=== PATIENT | male | born 1985 | race Two or more races ===

== ENCOUNTER → 2017-06-05 07:23 | Outpatient (CLI) | payer OTHER | END | disposition home or self-care (01) | LOC: LAB 07:23 | DX: M25.312 Other instability, left shoulder (principal) ==

== ENCOUNTER 2017-06-18 05:44 | Day surgery (SDC) | payer OTHER ==
[~2017-06-18 05:44] MED LIST: ATIVAN0.5 M1 PO; CYMBALTA60 MG PO
== END 2017-06-18 11:03 | disposition home or self-care (01) ==
LOC: CIR.AMB 05:44
DX: M25.312 Other instability, left shoulder (principal); M25.812 Other specified joint disorders, left shoulder